=== PATIENT | female | born 2000 | race Caucasian/White ===

== ENCOUNTER 2023-08-16 22:22 | Emergency (ER) | payer BC ==
[~2023-08-16] VITALS: Ht 165.1 cm; Wt 59.5 kg
[~2023-08-16 22:22] MED LIST: NO HOME MEDICATIONS
[2023-08-16] MEDS ORDERED: Acetaminophen 500 MG TAB PO ONE (23:00)
[2023-08-16] MEDS ORDERED: diphenhydrAMINE 25 MG CAP PO ONE (23:00)
[2023-08-16] MEDS ORDERED: Lidocaine 2% Viscous 15 ML UNIT DOSE MM ONE (23:00)
[2023-08-16] MEDS ORDERED: Clindamycin 150 MG CAP PO ONE (23:00)
[2023-08-16] MEDS ORDERED: CLEOCIN HC150 MG/CAP PO (23:41)
[2023-08-16] MEDS ORDERED: Lidocaine 2% Viscous 15 ML UNIT DOSE MM PRN (23:45)
[2023-08-16 23:49] VITALS: BP 114/63; PULSE 73; TEMP 98.4
== END 2023-08-16 23:49 | disposition home or self-care (01) ==
LOC: COL.ER 22:22
DX: O9A.213 Injury, poisoning and certain other consequences of external causes complicating pregnancy, third trimester (principal); S02.5XXA Fracture of tooth (traumatic), initial encounter for closed fracture; O99.613 Diseases of the digestive system complicating pregnancy, third trimester; K02.9 Dental caries, unspecified; K04.7 Periapical abscess without sinus; O99.333 Smoking (tobacco) complicating pregnancy, third trimester; F17.290 Nicotine dependence, other tobacco product, uncomplicated; Z3A.34 34 weeks gestation of pregnancy; Z88.0 Allergy status to penicillin